=== PATIENT | male | born 1960 | race Caucasian/White ===

== ENCOUNTER 2017-10-10 09:55 | Emergency (ER) | payer BC, OTHER ==
--- NOTE | 2017-10-10 10:23 | EDM.PDOC ---
ED HPI GENERAL MEDICAL PROBLEM - General Chief Complaint: Trauma Stated Complaint: FALL/HEAD INJURY Time Seen by Provider: 10/10/17 10:09 Source of Information: Reports: Patient, RN Notes Reviewed - History of Present Illness INITIAL COMMENTS - FREE TEXT/NARRATIVE: 56-year-old male had a ladder give out on him while he was at work short time ago. States he was about 6 or 7 feet up when somehow "the ladder gave out, partially collapsed. He ended up falling down backwards landing on his low back. He must come down somewhat feet first, he does have left heel discomfort. He states the ladder then fell and hit the front part of his head. LOC. No headache at this time. There's been no nausea vomiting or difficulty breathing. This was called as a trauma alert minor. I did see the patient within a few minutes of his arrival to his room. Headache Pain Score (Numeric/FACES): 4 - Related Data Allergies Allergy/AdvReac Type Severity Reaction Status Date / Time No Known Allergies Allergy Verified 10/10/17 10:18 Home Meds: Home Meds Metoprolol Succinate 1 tab PO DAILY 10/10/17 [History] PARoxetine HCl [Paxil] 40 mg PO DAILY 10/10/17 [History] Review of Systems - Review of Systems Review Of Systems: See Below Constitutional: Reports: No Symptoms Eyes: Reports: No Symptoms Ears: Reports: No Symptoms Nose: Reports: No Symptoms Mouth/Throat: Reports: No Symptoms Respiratory: Denies: Shortness of Breath, Pleuritic Chest Pain Cardiovascular: Denies: Chest Pain GI/Abdominal: Denies: Abdominal Pain, Nausea, Vomiting Musculoskeletal: Reports: Shoulder Pain (Left shoulder, mild), Back Pain (Low mid back), Other (Left foot). Denies: Neck Pain Skin: Reports: No Symptoms Neurological: Denies: Numbness, Tingling ED EXAM, GENERAL - Physical Exam Exam: See Below General Appearance: Alert, No Apparent Distress Eye Exam: Bilateral Eye: PERRL Ears: Normal External Exam Nose: Normal Inspection Throat/Mouth: Normal Inspection Head: Atraumatic. No: Facial Swelling, Facial Tenderness Neck: Supple, Non-Tender, Full Range of Motion Respiratory/Chest: No Respiratory Distress, Lungs Clear, Normal Breath Sounds, Chest Non-Tender Cardiovascular: Regular Rate, Rhythm GI/Abdominal: Soft, Non-Tender Back Exam: Other (No bruising or swelling visible). No: Paraspinal Tenderness, Vertebral Tenderness Extremities: Other (There is tenderness of the heel of his left foot, no visible swelling, no deformity of the foot) Neurological: Alert, Oriented, No Motor/Sensory Deficits Skin Exam: Warm, Dry, Normal Color Course - Vital Signs Last Recorded V/S: Last Vital Signs Temp 97.2 F 10/10/17 10:02 Pulse 62 10/10/17 10:02 Resp 18 10/10/17 10:02 BP 165/102 H 10/10/17 10:02 Pulse Ox 99 10/10/17 10:02 - Orders/Labs/Meds Orders: Active Orders 24 hr Category Date Time Status Foot Comp Min 3V Lt [CR] Stat Exams 10/10/17 10:10 Taken - Re-Assessments/Exams Free Text/Narrative Re-Assessment/Exam: 10/10/17 10:47 X-rays of foot show no fracture, discharge instructions as documented Departure - Departure Time of Disposition: 10:48 Disposition: Home, Self-Care 01 Condition: Fair Clinical Impression: Fall Qualifiers: Encounter type: initial encounter Qualified Code(s): W19.XXXA - Unspecified fall, initial encounter Foot contusion Qualifiers: Encounter type: initial encounter Laterality: left Qualified Code(s): S90.32XA - Contusion of left foot, initial encounter Back contusion Qualifiers: Encounter type: initial encounter Laterality: unspecified laterality Qualified Code(s): S20.229A - Contusion of unspecified back wall of thorax, initial encounter Hamstring muscle strain Qualifiers: Encounter type: initial encounter Laterality: left Qualified Code(s): S76.312A - Strain of muscle, fascia and tendon of the posterior muscle group at thigh level, left thigh, initial encounter - Discharge Information Referrals: Heath Leonard MD [Primary Care Provider] - Forms: ED Department Discharge, ED Return to Work/School Form Additional Instructions: Rest of today, ice packs and elevation as needed for swelling may take Advil or ibuprofen or Tylenol as needed for discomfort. Follow-up with your regular medical provider if not getting back to normal within 3-5 days as expected. Return to ED as needed if symptoms worsening in any way. - My Orders Last 24 Hours: My Active Orders 10/10/17 10:10 Foot Comp Min 3V Lt [CR] Stat - Assessment/Plan Last 24 Hours: My Active Orders 10/10/17 10:10 Foot Comp Min 3V Lt [CR] Stat
--- NOTE | 2017-10-10 13:28 | CR ---
Left foot: Four views of the left foot were obtained. Comparison: No prior study. Minimal plantar spur is seen as well as slight plantar calcification. No acute fracture or other bony abnormality is seen. Impression: 1. Plantar findings as noted above. Left foot exam is otherwise unremarkable. Diagnostic code #2
== END 2017-10-10 10:58 | disposition home or self-care (01) ==
LOC: JD.ED 09:55
DX: S76.312A Strain of muscle, fascia and tendon of the posterior muscle group at thigh level, left thigh, initial encounter (principal); S90.32XA Contusion of left foot, initial encounter; S20.229A Contusion of unspecified back wall of thorax, initial encounter; Y99.0 Civilian activity done for income or pay; W11.XXXA Fall on and from ladder, initial encounter; Z79.899 Other long term (current) drug therapy
CPT/HCPCS: 73630-26-LT; 73630-LT; 99284

== ENCOUNTER 2018-03-02 21:03 | Emergency (ER) | payer MEDICAID, OTHER ==
--- NOTE | 2018-03-02 21:22 | EDM.PDOC ---
ED HPI GENERAL MEDICAL PROBLEM - General Chief Complaint: Chest Pain Stated Complaint: CHEST PAIN Time Seen by Provider: 03/02/18 21:20 Source of Information: Reports: Patient History Limitations: Reports: No Limitations - History of Present Illness INITIAL COMMENTS - FREE TEXT/NARRATIVE: 57-year-old male presents to the ED with nonspecific complaints. His chief complaint is numbness and tingling intermittently in his left upper extremity from the shoulder to his hand off and on for several months. It is worse the last few days. Ptosis is in the left upper precordial chest pain anterior to the shoulder but does not appreciate the pain any worse with movement of the left arm such as getting dressed etc. Doesn't hurt to breathe. He does have a smoker's cough and brings up some phlegm in the mornings. Nose that he occasionally will wheeze or rale in his chest. No fever no chills. He came at the insistence of his girlfriend. He stopped his Levitra and his metoprolol over a week ago. Symptoms seem to be worse in stopping these medications. Blood pressure is currently 149/91. He reports she's lost 30 pounds of weight over the last 4 months. No specific reason for this. He was told in the past that he did have prediabetes. Feel that he has polyuria or polydipsia. Onset: Gradual (Left arm paresthesia been off and on for several months but worse the last 4 days or 5 days since going off the Levitra and the metoprolol. Is concerned his blood pressure may be out of control. With involvement of left upper anterior chest pain he was worried about his heart of course as well.) Duration: Day(s):, Intermittent, Waxing/Waning Location: Reports: Chest (Eft upper anterior chest discomfort radiating to his left arm some paresthesias in the left upper extremity but these been coming and going for several weeks or months.) Quality: Reports: Other (Paresthesias left upper extremity mostly pins and needles sensation.) Severity: Moderate Improves with: Reports: None Worsens with: Reports: None. Denies: Movement Context: Denies: Activity, Exercise, Lifting, Sick Contact, Trauma Associated Symptoms: Reports: Chest Pain (Left upper anterior chest the last few days), Cough, cough w sputum (She first thing in the morning. Smoker's cough.), Weakness. Denies: No Other Symptoms, Confusion ( comes and goes), Diaphoresis, Fever/Chills, Headaches, Loss of Appetite, Malaise, Nausea/Vomiting , Rash, Seizure, Shortness of Breath, Syncope Treatments [employer]NER: Reports: Other (see below) (None.) - Related Data Allergies Allergy/AdvReac Type Severity Reaction Status Date / Time No Known Allergies Allergy Verified 03/02/18 21:06 Home Meds: Home Meds Metoprolol Succinate [Toprol XL 100mg] 100 mg PO DAILY #30 tab.er 03/02/18 [Rx] Vardenafil HCl [Levitra] 20 mg PO DAILY #30 tablet 03/02/18 [Rx] Past Medical History Cardiovascular History: Reports: Hypertension, PVD, Other (See Below) Genitourinary History: Reports: Other (See Below) (Erectile dysfunction.) Musculoskeletal History: Reports: Other (See Below) (Pain both feet over the metatarsal heads.) Neurological History: Reports: Other (See Below) (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 Was causing severe headaches and he believes the headaches are much better since he had a tumor removed. Presumably was a meningioma. The scar is on the mid anterior vertex of his head.) - Past Surgical History GI Surgical History: Reports: Hernia Repair/Other Other Neurological Surgeries/Procedures: Tumor removal in July 2017- noncancerous Social & Family History - Family History Family Medical History: Noncontributory - Tobacco Use Smoking Status *Q: Current Every Day Smoker Tobacco Use Within Last Twelve Months: Cigarettes (Usually a pack per day.) Years of Tobacco use: 27 Packs/Tins Daily: 1 - Alcohol Use Days Per Week of Alcohol Use: 3 Number of Drinks Per Day: 3 Total Drinks Per Week: 9 - Recreational Drug Use Recreational Drug Use: No - Living Situation & Occupation Living situation: Reports: Single Occupation: Employed ED ROS GENERAL - Review of Systems Review Of Systems: See Below Constitutional: Reports: Fatigue. Denies: Fever, Chills, Malaise, Weakness, Decreased Appetite, Weight Loss HEENT: Reports: No Symptoms Respiratory: Reports: Cough, Sputum (Usually first thing in the morning coughs) . Denies: Shortness of Breath, Wheezing, Pleuritic Chest Pain, Hemoptysis Cardiovascular: Reports: Chest Pain, Blood Pressure Problem (Left upper anterior chest. See history present illness), Dyspnea on Exertion (Sometimes), Lightheadedness. Denies: Claudication ( Silas Dick hypertension but recently decreased his metoprolol.), Edema, Orthopnea Endocrine: Reports: Fatigue GI/Abdominal: Reports: No Symptoms : Reports: Other (Erectile dysfunction) Musculoskeletal: Reports: Back Pain Skin: Reports: No Symptoms (Occasional positive low back pain) Neurological: Reports: Paresthesia (Particularly left upper extremity.) Psychiatric: Reports: No Symptoms Hematologic/Lymphatic: Reports: No Symptoms Immunologic: Reports: No Symptoms ED EXAM, GENERAL - Physical Exam Exam: See Below Exam Limited By: No Limitations General Appearance: Alert, WD/WN, No Apparent Distress, Other (Rather vague historian.) Eye Exam: Bilateral Eye: Normal Inspection Throat/Mouth: Normal Inspection, Normal Oropharynx Head: Atraumatic, Other (Is a well-healed midline incision in the frontal vertex of his scalp where he had his brain tumor resected. ?) Neck: Normal Inspection, Supple, Non-Tender, Full Range of Motion. No: Lymphadenopathy (L), Lymphadenopathy (R) Respiratory/Chest: No Respiratory Distress, Lungs Clear, Normal Breath Sounds, No Accessory Muscle Use Cardiovascular: Normal Peripheral Pulses, Regular Rate, Rhythm, No Edema, No Gallop, No Murmur, No Rub Peripheral Pulses: 3+: Posterior Tibial (L), Posterior Tibial (R), Dorsalis Pedis (L), Dorsalis Pedis (R) GI/Abdominal: Normal Bowel Sounds, Soft, Non-Tender, No Organomegaly, No Distention, No Abnormal Bruit, No Mass (Male) Exam: No Hernia Back Exam: Normal Inspection, Full Range of Motion. No: CVA Tenderness (L), CVA Tenderness (R) Extremities: Normal Inspection, Normal Range of Motion, Non-Tender, No Pedal Edema, Other (Positive Phalen's and Tinel's sign on examination of the left median nerve.) Neurological: Alert, Oriented, CN II-XII Intact, Normal Cognition, Normal Gait Psychiatric: Normal Affect, Normal Mood Skin Exam: Warm, Dry, Intact, Normal Color, No Rash EKG INTERPRETATION EKG Date: 03/02/18 Time: 21:09 Rhythm: Other (Sinus arrhythmia) Rate (Beats/Min): 86 (Occasional PVCs.) [place]: LAD-Left [place] Deviation (Left axis deviation of -45.) P-Wave: Enlarged (Left atrial hypertrophy) QRS: Other (Early R-wave transition in lead V3 consider septal hypertrophy pattern. 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 DIRECTED Care 03/02/18 21:32 Active Chest 1V Frontal [CR] Stat Exams 03/02/18 21:30 Taken Peripheral IV Insertion Adult [OM.PC] Stat Oth 03/02/18 21:32 Ordered Labs: Laboratory Tests 03/02/18 03/02/18 03/02/18 Range/Units 21:38 21:38 21:38 WBC 9.48 H (4.23-9.07) K/mm3 RBC 5.42 (4.63-6.08) M/mm3 Hgb 17.0 (13.7-17.5) gm/L Hct 49.1 (40.1-51.0) % MCV 90.6 (79.0-92.2) fl MCH 31.4 (25.7-32.2) pg MCHC 34.6 (32.2-35.5) g/dl RDW Std Deviation 42.9 (35.1-43.9) fL Plt Count 231 (163-337) K/mm3 MPV 9.5 (9.4-12.3) fl Neutrophils % (Manual) 67 H (40-60) % Band Neutrophils % 1 (0-10) % Lymphocytes % (Manual) 23 (20-40) % Atypical Lymphs % 0 % Monocytes % (Manual) 6 (2-10) % Eosinophils % (Manual) 3 (0.8-7.0) % Basophils % (Manual) 0 L (0.2-1.2) Platelet Estimate Adequate RBC Morph Comment Normal PT 10.6 (9.5-12.1) SECONDS INR 0.97 D-Dimer, Quantitative (0.19-0.50) mg/L Sodium 142 (136-145) mEq/L Potassium 4.1 (3.5-5.1) mEq/L Chloride 105 (98-107) mEq/L Carbon Dioxide 27 (21-32) mEq/L Anion Gap 14.1 (5-15) BUN 10 (7-18) mg/dL Creatinine 1.0 (0.7-1.3) mg/dL Est Cr Clr Drug Dosing 102.47 mL/min Estimated GFR (MDRD) > 60 (>60) mL/min BUN/Creatinine Ratio 10.0 L (14-18) Glucose 91 (74-106) mg/dL Calcium 9.2 (8.5-10.1) mg/dL Magnesium 2.1 (1.8-2.4) mg/dl Total Bilirubin 0.5 (0.2-1.0) mg/dL AST 15 (15-37) U/L ALT 22 (16-63) U/L Alkaline Phosphatase 83 (46-116) U/L CK-MB (CK-2) 0.9 (0-3.6) ng/ml Troponin I < 0.017 (0.00-0.056) ng/mL C-Reactive Protein 0.3 (<1.0) mg/dL Total Protein 7.5 (6.4-8.2) g/dl Albumin 4.1 (3.4-5.0) g/dl Globulin 3.4 gm/dL Albumin/Globulin Ratio 1.2 (1-2) Ethyl Alcohol 0.00 (0.00) gm% 03/02/18 Range/Units 21:38 WBC (4.23-9.07) K/mm3 RBC (4.63-6.08) M/mm3 Hgb (13.7-17.5) gm/L Hct (40.1-51.0) % MCV (79.0-92.2) fl MCH (25.7-32.2) pg MCHC (32.2-35.5) g/dl RDW Std Deviation (35.1-43.9) fL Plt Count (163-337) K/mm3 MPV (9.4-12.3) fl Neutrophils % (Manual) (40-60) % Band Neutrophils % (0-10) % Lymphocytes % (Manual) (20-40) % Atypical Lymphs % % Monocytes % (Manual) (2-10) % Eosinophils % (Manual) (0.8-7.0) % Basophils % (Manual) (0.2-1.2) Platelet Estimate RBC Morph Comment PT (9.5-12.1) SECONDS INR D-Dimer, Quantitative < 0.19 L (0.19-0.50) mg/L Sodium (136-145) mEq/L Potassium (3.5-5.1) mEq/L Chloride (98-107) mEq/L Carbon Dioxide (21-32) mEq/L Anion Gap (5-15) BUN (7-18) mg/dL Creatinine (0.7-1.3) mg/dL Est Cr Clr Drug Dosing mL/min Estimated GFR (MDRD) (>60) mL/min BUN/Creatinine Ratio (14-18) Glucose (74-106) mg/dL Calcium (8.5-10.1) mg/dL Magnesium (1.8-2.4) mg/dl Total Bilirubin (0.2-1.0) mg/dL AST (15-37) U/L ALT (16-63) U/L Alkaline Phosphatase (46-116) U/L CK-MB (CK-2) (0-3.6) ng/ml Troponin I (0.00-0.056) ng/mL C-Reactive Protein (<1.0) mg/dL Total Protein (6.4-8.2) g/dl Albumin (3.4-5.0) g/dl Globulin gm/dL Albumin/Globulin Ratio (1-2) Ethyl Alcohol (0.00) gm% Meds: Medications Discontinued Medications Generic Name Dose Route Start Last Admin Trade Name Freq PRN Reason Stop Dose Admin Metoprolol Succinate 25 mg 03/02/18 22:54 Toprol Xl PO 03/02/18 22:55 ONETIME ONE Metoprolol Succinate 50 mg 03/02/18 22:56 Toprol Xl PO 03/02/18 22:57 ONETIME ONE Metoprolol Succinate 100 mg 03/02/18 22:58 03/02/18 23:13 Toprol Xl PO 03/02/18 22:59 100 mg ONETIME ONE Administration Sodium Chloride 10 ml 03/02/18 21:31 03/02/18 21:39 Saline Flush FLUSH 10 ml ASDIRECTED PRN Administration Keep Vein Open - Radiology Interpretation Free Text/Narrative:: 57-year-old male presents the ED with nonspecific complaints of paresthesias mostly prickling numbness sensation in his left upper extremity and no specific dermatome. Present for many months is just worse since he had stopped his Levitra over a week and half ago. He also reduced his dose of metoprolol. He did develop some left upper anterior chest discomfort which was concerning for him but his heart since he recently discontinued his metoprolol which she's been using for hypertension. Patient has lost 30 pounds of weight over the last 6 months and blood pressure is running quite low therefore he elected triangle off of the medication. Recognizes it may be interfering with his erectile function. has been on Levitra daily for greater than 6 months. Patient is a smoker pack per day. Examination reveals some tendinitis in his left upper shoulder particular supraspinatus tendon clicks and with certain movements of his arm such as internal/external rotation. Kapil some mild tenderness along the long head of the biceps tendon. No pain over the coracoid process. No chest wall pain could be elicited. ECG shows sinus rhythm in the mild sinus arrhythmia 86/m. Occasional PVCs. Q waves in leads 3 and aVF suggesting an old inferior wall myocardial infarction. No signs of acute ischemia are present. Clinically he is in no distress and certainly no shows no signs of acute microinfarction. He does appear to be quite anxious on my assessment. Plan saline lock. Routine labs to be performed one view chest x-ray. - Re-Assessments/Exams Free Text/Narrative Re-Assessment/Exam: 03/02/18 22:03 chest x-ray done by portable technique appears to be magnified. Cardiac silhouette is upper limits of normal. Visualized portion of the lungs are clear. In particular no abnormalities in the left upper anterior chest or ribs. No pneumothorax is evident. 03/02/18 22:40 Labs reveal a normal white count at 9.48 with 67% neutrophils and no band cells. Hemoglobin is 17.0 with hematocrit of 40 9.1C Edu mild hemoconcentration. Pedicles normal 231,000. Sodium 142 with a potassium of 4.1. Cord is 105 with a bicarbonate of 27. Anion gap is 14.1. BUN is 10 with a creatinine of 1.0. GFR is greater than 60. Glucose is 91 with a calcium of 9.2. Magnesium is normal at 2.1. Liver function is normal. CK-MB fraction 0.9 troponin I is less than 0.017. C-reactive protein is 0.3 current blood alcohol level is 0.00. 03/02/18 22:56 patient advised of the findings of his lab work. Again he still appears very anxious. Blood pressures been hovering around upper limits of normal 140-150 on the systolic side and 80-94 diastolically. He is asking for dosage of metoprolol and Levitra. Levitra is not available in the hospital. Departure - Departure Time of Disposition: 23:01 Disposition: Home, Self-Care 01 Condition: Fair Clinical Impression: Paresthesia of left arm, Carpal tunnel syndrome of left wrist, Non-cardiac chest pain Prescriptions: Metoprolol Succinate [Toprol XL 100mg] 100 mg PO DAILY #30 tab.er Vardenafil HCl [Levitra] 20 mg PO DAILY #30 tablet Instructions: Chest Wall Pain, [id number] Referrals: Heath Leonard MD [Primary Care Provider] - Forms: ED Department Discharge Additional Instructions: Evaluation in the emergency department today in regards to left upper anterior chest discomfort and paresthesias or numbness tingling earning sensation in the left upper extremity. There was no abnormalities detected in your shoulder other than some mild tendinitis of the biceps tendon and thickening of the supraspinatus tendon over the posterior shoulder. I suspect the numbness and tingling in the left hand and arm is secondary to carpal tunnel syndrome which means compression of the median nerve at her wrist. Since her symptoms have been going on for a lengthy period of time I would suggest follow-up with a hand surgeon such as Dr[facility] in [place] . Your blood pressure is borderline elevated in the ED. Suggest returning to metoprolol succinate 100 mg once daily for cardiac protection as well as blood pressure control and a new prescription was written for this medication. Also new prescription was written for the Levitra 20 mg once daily. He will need follow- up with Dr. Leonard within the next month to get refills for the next year. Of note all of your lab tests, chest x-ray and heart tracing essentially were normal. No evidence of heart related illness today. - My Orders Last 24 Hours: My Active Orders 03/02/18 21:30 EKG Documentation Completion [RC] STAT Chest 1V Frontal [CR] Stat 03/02/18 21:32 Peripheral IV Care [RC] . DIRECTED Peripheral IV Insertion Adult [OM.PC] Stat - Assessment/Plan Last 24 Hours: My Active Orders 03/02/18 21:30 EKG Documentation Completion [RC] STAT Chest 1V Frontal [CR] Stat 03/02/18 21:32 Peripheral IV Care [RC] . DIRECTED Peripheral IV Insertion Adult [OM.PC] Stat
[2018-03-02] MEDS ORDERED: Sodium Chloride 0.9% 10 ML Syringe FLUSH PRN (21:31)
[2018-03-02] MEDS ORDERED: Metoprolol Succinate 25 MG Tab.ER PO ONE (22:54)
[2018-03-02] MEDS ORDERED: Metoprolol Succinate 50 MG Tab.ER PO ONE ×2 (22:56→22:58)
--- NOTE | 2018-03-03 09:29 | CR ---
Chest: Portable view of the chest was obtained. Comparison: No prior chest x-ray. Heart size is normal. Tortuous thoracic aorta is incidentally noted. Lungs are clear. Bony structures are grossly intact. Impression: 1. Nothing acute is seen on portable chest x-ray. Diagnostic code #1
== END 2018-03-02 23:15 | disposition home or self-care (01) ==
LOC: JD.ED 21:03
DX: G56.02 Carpal tunnel syndrome, left upper limb (principal); R07.2 Precordial pain; I10 Essential (primary) hypertension; F17.210 Nicotine dependence, cigarettes, uncomplicated
CPT/HCPCS: 36415; 71045; 80053; 82553; 83735; 84484; 85007; 85027; 85379; 85610; 86140; 93005; 99285; A9270; G0480; 93010; 99284

== ENCOUNTER 2018-05-10 14:42 | Emergency (ER) | payer MEDICAID, OTHER ==
[2018-05-10] MEDS ORDERED: Lidocaine 1% 10 ML MDV INJECT ONE (14:54)
[2018-05-10] MEDS ORDERED: Diphtheria,Pertussis(Acell),Tetanus Vaccine 0.5 ML Syringe IM ONE (14:55)
--- NOTE | 2018-05-10 15:33 | EDM.PDOC ---
<Shelia Manley - Last Filed: 05/10/18 15:33> ED HPI GENERAL MEDICAL PROBLEM - General Chief Complaint: Upper Extremity Injury/Pain Stated Complaint: FINGER LAC WONT STOP BLEEDING Time Seen by Provider: 05/10/18 14:49 Source of Information: Reports: Patient History Limitations: Reports: No Limitations - History of Present Illness INITIAL COMMENTS - FREE TEXT/NARRATIVE: 57-year-old male presents to resume chief complaints of left index finger laceration. He reports while at home cutting cucumbers tonight slipped and cut his left finger. Patient reports that he is right-handed. He denies any numbness or tingling. Patient is uncertain of his last tetanus shot. Patient reports that he has been otherwise healthy. His PCP is . Onset: Today, Sudden Onset Date: 05/10/18 Onset Time: 13:30 Duration: Getting Worse Location: Reports: Upper Extremity, Left (Left dorsal index finger laceration) Quality: Reports: Ache Severity: Mild Improves with: Reports: None Worsens with: Reports: None Associated Symptoms: Reports: No Other Symptoms Left Finger-Index Pain Score (Numeric/FACES): 1 - Related Data Allergies Allergy/AdvReac Type Severity Reaction Status Date / Time No Known Allergies Allergy Verified 03/02/18 21:06 Home Meds: Home Meds Metoprolol Succinate [Toprol XL 100mg] 100 mg PO DAILY #30 tab.er 03/02/18 [Rx] Vardenafil HCl [Levitra] 20 mg PO DAILY #30 tablet 03/02/18 [Rx] Past Medical History Cardiovascular History: Reports: Hypertension, PVD, Other (See Below) Genitourinary History: Reports: Other (See Below) Musculoskeletal History: Reports: Other (See Below) Neurological History: Reports: Other (See Below) - Past Surgical History GI Surgical History: Reports: Hernia Repair/Other Other Neurological Surgeries/Procedures: Tumor removal in July 2017- noncancerous Social & Family History - Family History Family Medical History: Noncontributory - Tobacco Use Smoking Status *Q: Current Every Day Smoker Years of Tobacco use: 20 Packs/Tins Daily: 1 - Caffeine Use Caffeine Use: Reports: Coffee - Living Situation & Occupation Living situation: Reports: Single Occupation: Employed Review of Systems - Review of Systems Review Of Systems: ROS reveals no pertinent complaints other than HPI. Skin: Reports: Other (Left index finger laceration) ED EXAM, GENERAL - Physical Exam Exam: See Below Exam Limited By: No Limitations General Appearance: Alert, WD/WN, No Apparent Distress Peripheral Pulses: 4+: Radial (L) Extremities: Normal Inspection, Normal Range of Motion, Non-Tender, No Pedal Edema, Normal Capillary Refill, Other (Left dorsal index finger has a 2 cm linear laceration, neurovascularly intact.) Skin Exam: Warm, Dry, Intact, Normal Color, No Rash ED TRAUMA EXTREMITY PROCEDURES - Laceration/Wound Repair Left Middle Anterior Digit - 2nd (Index) Appearance: Superficial, Clean Distal NVT: Neuro & Vascular Intact, No Tendon Injury Anesthetic Type: Local Local Anesthesia - Lidocaine (Xylocaine): 1% Plain Local Anesthetic Volume: 2cc Skin Prep: Providone-Iodine (Betadine) Closed With: Sutures Suture Size: other (5.0 Ethilon) # of Sutures: 3 Suture Type: Simple Sterile Dressing Applied: Provider Tetanus Status Addressed: Yes Complications: No Progress/Comments: Verbal consent was obtained, patient tolerated procedure well. Course - Vital Signs Last Recorded V/S: Last Vital Signs Temp 97.1 F 05/10/18 14:49 Pulse 66 05/10/18 14:49 Resp 16 05/10/18 14:49 BP 144/99 H 05/10/18 14:49 Pulse Ox 96 05/10/18 14:49 - Orders/Labs/Meds Orders: Active Orders 24 hr Category Date Time Status Vaccines to be Administered [RC] PER UNIT ROUTINE Care 05/10/18 14:55 Active Meds: Medications Discontinued Medications Generic Name Dose Route Start Last Admin Trade Name Violet PRN Reason Stop Dose Admin Diphtheria/Tetanus/Acell Pertussis 0.5 ml 05/10/18 14:55 05/10/18 15:00 Adacel IM 05/10/18 14:56 0.5 ml .ONCE ONE Administration Lidocaine HCl 10 ml 05/10/18 14:54 05/10/18 15:01 Xylocaine 1% INJECT 05/10/18 14:55 10 ml ONETIME ONE Administration - Re-Assessments/Exams Free Text/Narrative Re-Assessment/Exam: 05/10/18 15:31 Patient received laceration repair and updated DTaP and his condition improved. I will discharge home with instructions for laceration care. Strict patient to follow up with his PCP in 7-10 days to have his sutures removed. Instructed patient to return to the restroom for any new or acutely worsening symptoms. Departure - Departure Time of Disposition: 15:31 Disposition: Home, Self-Care 01 Clinical Impression: Laceration of left index finger w/o foreign body w/o damage to nail Qualifiers: Encounter type: initial encounter Qualified Code(s): S61.211A - Laceration without foreign body of left index finger without damage to nail, initial encounter - Discharge Information *PRESCRIPTION DRUG MONITORING PROGRAM REVIEWED*: Not Applicable *COPY OF PRESCRIPTION DRUG MONITORING REPORT IN PATIENT ALYSIA: Not Applicable Instructions: Stitches, [place], or Adhesive Wound Closure, Sutured Wound Care , [id number] Referrals: Heath Leonard MD [Primary Care Provider] - Forms: ED Department Discharge Additional Instructions: Diagnosis left finger laceration. He can wash her finger with soap and water keep it dry. For signs and symptoms of infection including but not limited to fever 101 or greater warmth at the site using purulent drainage. Follow up with her PCP 7-10 days to have sutures removed. He may return to [facility] for any new acute symptoms. <Johan Rebollar - Last Filed: 05/10/18 20:16> Course - Re-Assessments/Exams Free Text/Narrative Re-Assessment/Exam: 05/10/18 20:16 Patient has been evaluated and treated by CORDELL Meraz. I have also evaluated patient. I agree with hx, exam, treatment as documented.
== END 2018-05-10 15:45 | disposition home or self-care (01) ==
LOC: JD.ED 14:42
DX: S61.211A Laceration without foreign body of left index finger without damage to nail, initial encounter (principal); F17.210 Nicotine dependence, cigarettes, uncomplicated; I10 Essential (primary) hypertension; W26.9XXA Contact with unspecified sharp object(s), initial encounter
CPT/HCPCS: 12001; 90471; 90700; 99282; J2001; 12041

== ENCOUNTER 2018-05-28 02:26 | Emergency (ER) | payer MEDICAID ==
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
== END 2018-05-28 02:44 ==
LOC: JD.ED 02:26
DX: R07.2 Precordial pain (principal); F17.210 Nicotine dependence, cigarettes, uncomplicated; I10 Essential (primary) hypertension; F41.9 Anxiety disorder, unspecified; Z79.899 Other long term (current) drug therapy; Y04.0XXA Assault by unarmed brawl or fight, initial encounter
CPT/HCPCS: 99283; 99285

== ENCOUNTER 2021-04-03 10:32 | Emergency (ER) | payer MEDICAID ==
[2021-04-03] MEDS ORDERED: Ketorolac 60 MG/2 ML SDV IM ONE (11:23)
== END 2021-04-03 13:13 | disposition home or self-care (01) ==
LOC: JD.ED 10:32
DX: M79.10 Myalgia, unspecified site (principal); M25.60 Stiffness of unspecified joint, not elsewhere classified; I10 Essential (primary) hypertension; Z87.891 Personal history of nicotine dependence; Z20.822 Contact with and (suspected) exposure to COVID-19
CPT/HCPCS: 87635; 87804; 96372; 99283; J1885; 99284; U0002

== ENCOUNTER 2023-01-05 21:00 | Emergency (ER) | payer MEDICAID ==
[2023-01-05 22:14] LABS: INFLUENZA A NAA NEGATIVE (NEGATIVE)
[2023-01-05 23:45] LABS: CORONAVIRUS COVID-19 NAA POSITIVE (NEGATIVE)
== END 2023-01-05 23:00 | disposition home or self-care (01) ==
LOC: JD.ED 21:00
DX: U07.1 COVID-19 (principal); F17.210 Nicotine dependence, cigarettes, uncomplicated; I10 Essential (primary) hypertension; Z79.899 Other long term (current) drug therapy
CPT/HCPCS: 0240U; 71046; 87651; 99283